=== PATIENT | female | born 1985 ===

== ENCOUNTER 2017-04-21 15:02 | Emergency (ER) | payer BC ==
[2017-04-21 15:14] VITALS: BP 154/90
--- NOTE | 2017-04-21 15:23 | UC ---
Throat Pain/Nasal Olu HPI - HPI Summary HPI Summary: Pt presents with sore throat. She tells me that her ST started last night. She has members of her household that have been dx'd with strep throat. Has not tried anything OTC for relief. Still able to eat/drink/breathe without difficulty. Denies fever, chills, cough, SOB, chest pain, abdominal pain, N/V/D/ c - History of Current Complaint Chief Complaint: UCRespiratory Stated Complaint: SORE THROAT Time Seen by Provider: 04/21/17 15:22 Hx Obtained From: Patient Hx Last Menstrual Period: 04/11/17 Onset/Duration: Sudden Onset Severity: Mild Pain Intensity: 3 Pain Scale Used: 0-10 Numeric - Allergies/Home Medications Allergies/Adverse Reactions: Allergies Allergy/AdvReac Type Severity Reaction Status Date / Time Amoxicillin [From Augmentin] Allergy Vomiting Verified 04/21/17 15:14 Clavulanic Acid Allergy Vomiting Verified 04/21/17 15:14 [From Augmentin] PMH/Surg Hx/FS Hx/Imm Hx Previously Healthy: Yes - Surgical History Surgical History: Yes Surgery Procedure, Year, and Place: c sectionx 2 - Family History Known Family History: Negative: Diabetes - Social History Occupation: Employed Full-time Lives: With Family Alcohol Use: Occasionally Substance Use Type: None Smoking Status (MU): Never Smoked Tobacco - Immunization History Most Recent Tetanus Shot: 05/2008 Review of Systems Constitutional: Negative Skin: Negative Eyes: Negative ENT: Sore Throat Respiratory: Negative Cardiovascular: Negative Gastrointestinal: Negative All Other Systems Reviewed And Are Negative: Yes Physical Exam Triage Information Reviewed: Yes Appearance: Well-Appearing, Well-Nourished Vital Signs: Initial Vital Signs Temp 98.0 F 04/21/17 15:11 Pulse 86 04/21/17 15:11 Resp 18 04/21/17 15:11 BP 154/90 04/21/17 15:11 Pulse Ox 99 04/21/17 15:11 Vital Signs Reviewed: Yes Eyes: Positive: Conjunctiva Clear ENT: Positive: Hearing grossly normal, Pharyngeal erythema, TMs normal, Tonsillar swelling, Uvula midline. Negative: Nasal congestion, Nasal drainage, TM bulging, TM dull, TM red, Tonsillar exudate, Sinus tenderness Neck: Positive: Supple, Nontender, No Lymphadenopathy Respiratory: Positive: Chest non-tender, Lungs clear, Normal breath sounds, No respiratory distress, No accessory muscle use Cardiovascular: Positive: RRR, No Murmur, Pulses Normal Neurological: Positive: Alert Skin: Negative: rashes Throat Pain/Nasal Course/Dx - Course Course Of Treatment: POC strep - negative. Given sick contacts, hospital work, and that she is going out of town tomorrow - she requested an antibiotic just in case her symptoms worsen or do not improve. Azithromycin Assessment/Plan: POC strep - negative. Given sick contacts, hospital work, and that she is going out of town tomorrow - she requested an antibiotic just in case her symptoms worsen or do not improve. Azithromycin - Differential Dx/Diagnosis Differential Diagnosis/HQI/PQRI: Pharyngitis Provider Diagnoses: Pharyngitis Discharge - Discharge Plan Condition: Stable Disposition: HOME Prescriptions: Azithromycin TAB* [Zithromax TAB (Z-ARMANDO) 250 mg #6 tabs] 2 tab PO .TODAY, THEN 1 DAILY #1 armando Patient Education Materials: Pharyngitis (ED) Referrals: Fabiano Hopper MD [Medical Doctor] - Additional Instructions: 1) Rest and drink plenty of fluids! If you develop a fever, SOB, chest pain, new or worsening symptoms - please call your PCP or go to the ED. Your blood pressure was high at todays visit. Please see your primary provider within 4 weeks for recheck and re-evaluation.
== END 2017-04-21 16:01 | disposition home or self-care (01) ==
LOC: UCEAST 15:02
DX: J02.9 Acute pharyngitis, unspecified (principal); Z72.89 Other problems related to lifestyle
CPT/HCPCS: 87651; 99212; G0463